=== PATIENT | male | born 1970 | race Two or more races ===

== ENCOUNTER 2017-03-14 20:19 | Emergency (ER) | payer OTHER ==
[~2017-03-14] VITALS: Ht 170.2 cm; Wt 90.7 kg
[2017-03-14] MEDS ORDERED: METOPROLOL SUCC50 MG ORAL (20:37)
[2017-03-14 20:40] VITALS: BP 152/78
--- NOTE | 2017-03-14 20:58 | Emergency Room Report ---
History of Present Illness General Chief Complaint: General Complaint Source: Patient Present Illness HPI The patient presents with 2 days of a rash. It started on his arms. It's now spread to his legs or his been itching. This evening is noted swelling of his ankles addition to that. There's been no change in foods, travel, hiking, detergents. He is using a different shampoo for about a week. He's been taking Benadryl. Been helping slightly with the itching. His tetanus is not up -to-date. He denies any fevers, shortness of breath chest pain, nausea, vomiting, diarrhea. Having nocturia and frequency. He denies any dysuria. Denies diabetes. Denies any childhood condition such as eczema or psoriasis. His never had allergies before. Allergies: Coded Allergies: No Known Allergies (Unverified , 03/14/17) Patient History Past Medical History: see triage record, HTN Social History: Denies: smoking Social History Narrative with young man and sister Reviewed Nursing Documentation: PMH: Agreed, PSxH: Agreed Nursing Documentation-PMH Hx Hypertension: Yes Review of Systems All Other Systems: negative except mentioned in HPI Physical Exam Vital Signs Date Time Temp Pulse Resp B/P (MAP) Pulse Ox O2 Delivery O2 Flow Rate FiO2 03/14/17 20:32 98.8 101 18 151/94 98 Room Air Sp02 EP Interpretation: reviewed, normal General Appearance: well appearing, no apparent distress, GCS 15 Head: normocephalic Eyes: left eye other - terbid cornea, bilateral eye normal inspection, bilateral eye abnormal EOM - dyscongugate gaze ENT: normal pharynx, moist mucus membranes Neck: supple Respiratory: lungs clear, normal breath sounds Cardiovascular #1: regular rate, rhythm, edema - trace - ankles Cardiovascular #2: 2+ radial (R) Gastrointestinal: normal inspection, normal bowel sounds, non tender, no mass, non-distended Musculoskeletal: back normal, gait/station normal, normal range of motion Neurologic: alert, oriented x3, grossly normal Psychiatric: mood/affect normal Skin: warm/dry, other - excoriations and some erythematous plaques LE, abrasions Medical Decision Making Diagnostic Impression: Primary Impression: Allergic reaction Qualified Codes: T78.40XA - Allergy, unspecified, initial encounter Additional Impressions: Leukocytosis, unspecified Eosinophilia Edema Qualified Codes: R60.9 - Edema, unspecified ER Course Patient presents with excoriated skin rash. There is mild erythema and some edema. Differential includes allergic reaction, cellulitis, diabetic dermatopathy, nephrotic syndrome amongst others. We will evaluate with labs. The patient recently took a Benadryl. He will receive a tetanus shot and we will consider using steroids. Sl elevated WBC with eosinophilia. Normal renal function. Solu medrol given. Improved with treatment with decreased itching and edema. Exact etiology of rash unclear. Will cover for both allergic reaction and early cellulitis. Patient stable for outpatient observation and treatment. Laboratory Tests Test 03/14/17 20:55 03/14/17 21:05 Urine Color Yellow Urine Appearance Clear Urine pH 5 (4.5-8.0) Urine Specific [place] 1.020 (1.005-1.035) Urine Protein Negative (NEGATIVE) Urine Glucose (UA) Negative (NEGATIVE) Urine Ketones Negative (NEGATIVE) Urine Occult Blood Negative (NEGATIVE) Urine Nitrite Negative (NEGATIVE) Urine Bilirubin Negative (NEGATIVE) Urine Urobilinogen Normal MG/DL (0.0-1.0) Urine Leukocyte Esterase 1+ (NEGATIVE) H Urine RBC 0-2 /HPF (0 - 0) H Urine WBC 0-2 /HPF (0 - 0) Urine Squamous Epithelial Cells Few /LPF (NONE/OCC) Urine Bacteria Few /HPF (NONE) White Blood Count 12.3 K/UL (4.8-10.8) H Red Blood Count 4.39 M/UL (4.70-6.10) L Hemoglobin 13.0 G/DL (14.2-18.0) L Hematocrit 42.0 % (42.0-52.0) Mean Corpuscular Volume 96 FL (80-99) Mean Corpuscular Hemoglobin 29.5 PG (27.0-31.0) Mean Corpuscular Hemoglobin Concent 30.9 G/DL (32.0-36.0) L Red Cell Distribution Width 12.2 % (11.6-14.8) Platelet Count 342 K/UL (150-450) Mean Platelet Volume 6.6 FL (6.5-10.1) Neutrophils (%) (Auto) 44.2 % (45.0-75.0) L Lymphocytes (%) (Auto) 36.4 % (20.0-45.0) Monocytes (%) (Auto) 7.0 % (1.0-10.0) Eosinophils (%) (Auto) 11.1 % (0.0-3.0) H Basophils (%) (Auto) 1.4 % (0.0-2.0) Erythrocyte Sedimentation Rate 35 MM/HR (0-15) H Prothrombin Time 10.1 SEC (9.30-11.50) Prothrombin Time INR 1.0 (0.9-1.1) PTT 27 SEC (23-33) Sodium Level 140 MMOL/L (136-145) Potassium Level 3.6 MMOL/L (3.5-5.1) Chloride Level 102 MMOL/L (98-107) Carbon Dioxide Level 28 MMOL/L (21-32) Anion Gap 10 mmol/L (5-15) Blood Urea Nitrogen 15 mg/dL (7-18) Creatinine 1.2 MG/DL (0.55-1.30) Estimate Glomerular Filtration Rate > 60 mL/min (>60) Glucose Level 108 MG/DL (74-106) H Calcium Level 9.2 MG/DL (8.5-10.1) Total Bilirubin 0.2 MG/DL (0.2-1.0) Aspartate Amino Transferase (AST) 26 U/L (15-37) Alanine Aminotransferase (ALT) 28 U/L (12-78) Alkaline Phosphatase 102 U/L (46-116) Total Creatine Kinase 160 U/L (26-308) Pro-B-Type Natriuretic Peptide 74 pg/mL (0-125) Total Protein 8.2 G/DL (6.4-8.2) Albumin 4.1 G/DL (3.4-5.0) Globulin 4.1 g/dL Albumin/Globulin Ratio 1.0 (1.0-2.7) Last Vital Signs Date Time Temp Pulse Resp B/P (MAP) Pulse Ox O2 Delivery O2 Flow Rate FiO2 03/14/17 23:10 98.4 82 16 150/80 100 Room Air Status: improved Disposition: HOME, SELF-CARE Condition: Improved Scripts Prednisone* (PREDNISONE*) 20 Mg Tablet 40 MG ORAL DAILY for 5 Days, #10 TAB Prov: Shine Holden M.D. 03/14/17 Bacitracin (Bacitracin) 28.4 Gm Oint...g. 1 APPLIC TOPIC BID, #30 GM Prov: Shine Holden M.D. 03/14/17 Triamcinolone Acet (Triamcinolone Acetonide) 15 Gm Cream..g. 1 APPLIC APPLIC BID Y for rash or itching, #15 GM 1 Refill Prov: Shine Holden M.D. 03/14/17 Shine Holden M.D. Mar 14, 2017 20:58
[2017-03-14] MEDS ORDERED: Tetanus/Diptheria/Pertussis Vaccine 0.5ml Syr IM ONE (21:00)
[2017-03-14 21:28] LABS: BASOPHILS % (AUTO) 1.4 % (0.0-2.0); EOSINOPHILS % (AUTO) 11.1 % (0.0-3.0); LYMPHOCYTES % (AUTO) 36.4 % (20.0-45.0); MEAN CORPUSCULAR HEMOGLOBIN 29.5 PG (27.0-31.0); MEAN CORPUSCULAR HGB CONC 30.9 G/DL (32.0-36.0); MEAN CORPUSCULAR VOLUME 96 FL (80-99); MEAN PLATELET VOLUME 6.6 FL (6.5-10.1); NEUTROPHILS % (AUTO) 44.2 % (45.0-75.0); PLATELET COUNT 342 K/UL (150-450); RED BLOOD COUNT 4.39 M/UL (4.70-6.10); RED CELL DISTRIBUTION WIDTH 12.2 % (11.6-14.8); WHITE BLOOD COUNT 12.3 K/UL (4.8-10.8)
[2017-03-14 21:31] LABS: APPEARANCE,URINE CLEAR; KETONES,URINE NEGATIVE (NEGATIVE); LEUKOCYTE ESTERASE ,URINE 1+ (NEGATIVE); NITRITE,URINE NEGATIVE (NEGATIVE); PH,URINE 5 (4.5-8.0); PROTEIN,URINE NEGATIVE (NEGATIVE); UROBILINOGEN,URINE NORMAL MG/DL (0.0-1.0)
[2017-03-14 21:38] LABS: PROTHROMBIN TIME 10.1 SEC (9.30-11.50)
[2017-03-14 21:44] LABS: BACTERIA,URINE FEW /HPF; RBC,URINE 0-2 /HPF (0 - 0); SQUAMOUS EPITHELIAL CELL,UR FEW /LPF (NONE/OCC); WBC,URINE 0-2 /HPF (0 - 0)
[2017-03-14 22:00] LABS: ALANINE AMINOTRANSFERASE 28 U/L (12-78); ANION GAP 10 mmol/L (5-15); ASPARTATE AMINO TRANSFERASE 26 U/L (15-37); CALCIUM 9.2 MG/DL (8.5-10.1); CARBON DIOXIDE 28 MMOL/L (21-32); CHLORIDE 102 MMOL/L (98-107); CREATININE 1.2 MG/DL (0.55-1.30); GLOMERULAR FILTRATION RATE > 60 mL/min (>60); POTASSIUM 3.6 MMOL/L (3.5-5.1); SODIUM 140 MMOL/L (136-145); TOTAL PROTEIN 8.2 G/DL (6.4-8.2)
[2017-03-14 22:05] VITALS: BP 148/76
[2017-03-14] MEDS ORDERED: Solu-MEDROL 125mg Inj IVP ONE (22:15)
[2017-03-14 22:43] LABS: ERYTHROCYTE SEDIMENTATION RATE 35 MM/HR (0-15)
[2017-03-14] MEDS ORDERED: BACITRACIN15 GM TOPIC (23:02)
[2017-03-14] MEDS ORDERED: PREDNISONE20 MG ORAL (23:02)
[2017-03-14] MEDS ORDERED: KENALOG 0.025%15 GM APPLIC (23:02)
[2017-03-14 23:09] VITALS: BP 150/80
[2017-03-14 23:10] VITALS: BP 150/80
== END 2017-03-14 23:10 | disposition home or self-care (01) ==
LOC: EMR 21:17
DX: T78.40XA Allergy, unspecified, initial encounter (principal); X58.XXXA Exposure to other specified factors, initial encounter; D72.829 Elevated white blood cell count, unspecified; D72.1 Eosinophilia; R60.0 Localized edema; Z23 Encounter for immunization; I10 Essential (primary) hypertension
CPT/HCPCS: 36415; 80053; 81003; 82550; 83880; 85025; 85610; 85651; 85730; 90471; 90715; 96374; 99284; J2930

== ENCOUNTER 2017-04-30 19:26 | Emergency (ER) | payer OTHER ==
[~2017-04-30] VITALS: Ht 170.2 cm; Wt 88.9 kg
[~2017-04-30 19:26] MED LIST: BACITRACIN15 GM TOPIC; KENALOG 0.025%15 GM APPLIC; METOPROLOL SUCC50 MG ORAL; PREDNISONE20 MG ORAL
[2017-04-30 19:45] VITALS: BP 152/99
--- NOTE | 2017-04-30 19:54 | Emergency Room Report ---
History of Present Illness General Chief Complaint: General Complaint Present Illness HPI 47-year-old male presents to the emergency department complaining of localized swelling to the posterior elbow since last night. Patient denies appreciable trauma or fall. Patient denies pain at this time he reports that he has full range of motion of the elbow. Patient denies erythema, increased temperature palpation, open wounds, or previous injury to the affected extremity. Denies fevers or chills. Denies history of gout, or previous episodes of joint pain and swelling. Denies numbness tingling or loss of sensation or gross motor movements of the extremities, incontinence of bowel or bladder. Denies CP, Palpitations, LOC, AMS, dizziness, Changes in Vision, Sensation, paresthesias, or a sudden severe headache. Allergies: Coded Allergies: No Known Allergies (Unverified , 03/14/17) Patient History Past Medical History: see triage record Past Surgical History: none Pertinent Family History: none Reviewed Nursing Documentation: PMH: Agreed, PSxH: Agreed Nursing Documentation-PMH Hx Hypertension: Yes Review of Systems All Other Systems: negative except mentioned in HPI Physical Exam Vital Signs Date Time Temp Pulse Resp B/P (MAP) Pulse Ox O2 Delivery O2 Flow Rate FiO2 04/30/17 19:31 97.5 84 16 152/99 99 Room Air Sp02 EP Interpretation: reviewed, normal General Appearance: no apparent distress, alert, GCS 15, non-toxic Head: normocephalic, atraumatic ENT: hearing grossly normal, normal voice Neck: full range of motion Respiratory: lungs clear, normal breath sounds, speaking full sentences Cardiovascular #1: regular rate, rhythm, normal capillary refill Cardiovascular #2: 2+ radial (L) Musculoskeletal: back normal, gait/station normal, normal range of motion, non- tender, swelling - localized well circumscribed palpable swelling to the posterior left elbow, no erythema, no increased temperature to palpation. FROM without pain, no open wounds. Neurologic: alert, oriented x3, responsive, motor strength/tone normal, sensory intact, normal gait, speech normal Skin: normal color, no rash, warm/dry, well hydrated Medical Decision Making PA Attestation Dr. Holden is my supervising Physician whom patient management has been discussed with. Diagnostic Impression: Primary Impression: Olecranon bursitis of left elbow ER Course 47-year-old male presents to the emergency department complaining of localized swelling to the posterior elbow since last night. Patient denies appreciable trauma or fall. Patient denies pain at this time he reports that he has full range of motion of the elbow. Patient denies erythema, increased temperature palpation, open wounds, or previous injury to the affected extremity. Denies fevers or chills. Denies history of gout, or previous episodes of joint pain and swelling. Denies numbness tingling or loss of sensation or gross motor movements of the extremities, incontinence of bowel or bladder. Denies CP, Palpitations, LOC, AMS, dizziness, Changes in Vision, Sensation, paresthesias, or a sudden severe headache. Ddx considered but are not limited to Fracture, dislocation, contusion, Sprain/ Strain/Spasm,olecranon bursitis, septic joint, sprain just to name a few. Vital signs: are WNL, pt. is afebrile H&PE are most consistent with musculoskeletal injury will perform imaging to r/ o fractures/dislocations. ORDERS: - none required at this time, as the diagnosis is clinical ED INTERVENTIONS: - Motrin PO -Moe wrap applied to the left elbow by fuel testing technician. Pt. remains neurovascularly intact. d/w pt. conservative treatment, and to follow up with a primary care provider. pt given a list of primary care clinics for follow up. d/w pt. to return to the ED with worsening or new symptoms. I discussed with this patient that if his symptoms do not get better that he may require needle aspiration and this will be determined up followup with his PMD. DISCHARGE: At this time pt. is stable for d/c to home. Will provide printed patient care instructions, and any necessary prescriptions. Care plan and follow up instructions have been discussed with the patient prior to discharge. Last Vital Signs Date Time Temp Pulse Resp B/P (MAP) Pulse Ox O2 Delivery O2 Flow Rate FiO2 04/30/17 19:31 97.5 84 16 152/99 99 Room Air Disposition: HOME, SELF-CARE Condition: Stable Scripts Naproxen Sodium (NAPROXEN SODIUM) 550 Mg Tablet 550 MG ORAL TWICE A DAY, #20 TAB Prov: Rosie Fisher 04/30/17 Patient Instructions: Olecranon Bursitis With Rehab[facility] Additional Instructions: Take medications as directed. Follow up with a Primary Care Provider in 3-5 days. If conservative treatment does not resolve your symptoms, Needle aspiration to drain would be considered. --Please review list of primary care clinics, if you do not already have a primary care provider Return sooner to ED if new symptoms occur, or current symptoms become worse. - Please note that this Emergency Department Report was dictated using [employer] servicer technology software, occasionally this can lead to erroneous entry secondary to interpretation by the dictation equipment. Rosie Fisher Apr 30, 2017 19:54
[2017-04-30] MEDS ORDERED: NAPROXEN SODIU550 M1 ORAL (19:55)
[2017-04-30 20:12] VITALS: BP 152/99
== END 2017-04-30 20:12 | disposition home or self-care (01) ==
LOC: EMR 19:56
DX: M70.22 Olecranon bursitis, left elbow (principal); I10 Essential (primary) hypertension
CPT/HCPCS: 99283

== ENCOUNTER 2017-06-29 17:09 | Emergency (ER) | payer OTHER ==
[~2017-06-29] VITALS: Ht 170.2 cm; Wt 88.9 kg
[~2017-06-29 17:09] MED LIST changes: +NAPROXEN SODIU550 M1 ORAL
[2017-06-29] MEDS ORDERED: HYDROCHLOROTHIA25 MG ORAL (17:35)
--- NOTE | 2017-06-29 17:55 | Emergency Room Report ---
History of Present Illness General Chief Complaint: General Complaint Source: Patient Present Illness HPI 47 yo male presents to ER complaining of left cheek stiffness x2days. Patient reports symptoms began acutely. Denies bug or animal bites. Reports up to date on vaccinations. Denies loss of function of extremities. Patient and patients reports lots of stress and want to know "if that is related." Denies vision changes, loss of hearing, ear pain, dental pain. Patient denies chest pain, SOB, LOC, syncope, muscle weakness. Denies difficulty eating or chewing food; denies difficulty swallowing liquids. Denies difficulty with speech. Allergies: Coded Allergies: AMLODIPINE (Verified Allergy, Unknown, 06/29/17) Patient History Past Medical History: see triage record Pertinent Family History: none Immunizations: UTD Reviewed Nursing Documentation: PMH: Agreed, PSxH: Agreed Nursing Documentation-PMH Hx Hypertension: Yes Review of Systems All Other Systems: negative except mentioned in HPI Physical Exam Vital Signs Date Time Temp Pulse Resp B/P (MAP) Pulse Ox O2 Delivery O2 Flow Rate FiO2 06/29/17 17:31 98.1 88 19 152/101 98 Room Air Sp02 EP Interpretation: reviewed, normal Head: normocephalic, atraumatic Eyes: bilateral eye normal inspection, bilateral eye PERRL, bilateral eye EOMI ENT: hearing grossly normal, normal pharynx, no angioedema, normal voice, TMs + canals normal, uvula midline, other - masseter muscle: contracted at rest, able to smile, frown, open mouth and speak without difficulty, no TTP, erythema , no edema, no loss of sensation Neck: full range of motion, supple/symm/no masses Respiratory: chest non-tender, lungs clear, normal breath sounds, speaking full sentences Cardiovascular #1: regular rate, rhythm, no edema Cardiovascular #2: 2+ carotid (R), 2+ carotid (L), 2+ radial (R), 2+ radial (L) Gastrointestinal: normal bowel sounds, non tender, soft, non-distended, no guarding, no rebound Musculoskeletal: back normal, digits/nails normal, gait/station normal, normal range of motion, non-tender Neurologic: alert, oriented x3, responsive, recycling tech III-XII nml as tested, motor strength/tone normal, sensory intact, speech normal Psychiatric: mood/affect normal Skin: normal color, no rash, warm/dry, well hydrated Lymphatic: no adenopathy Medical Decision Making PA Attestation Dr. Esqueda is my supervising Physician whom patient management has been discussed with. Diagnostic Impression: Primary Impression: Muscle spasm ER Course Pt. presents to the ED c/o left cheek spasm. Ddx considered but are not limited to muscle spasm, cramp, psychosomatic. Vital signs: are WNL, pt. is afebrile ORDERS: None required at this time ED INTERVENTIONS: None required at this time DISCHARGE: -Rx provided for Methocarbamol At this time pt. is stable for d/c to home. Patient resting comfortably in no acute distress, hemodynamically stable, non- toxic appearing, Will provide printed patient care instructions, and any necessary prescriptions. Patient instructed to follow with primary care provider in 3 - 5 days and to request further as needed. Patient understands and agrees to treatment plan. Care plan and follow up instructions have been discussed with the patient prior to discharge. Take medications as directed. Patient questions asked and answered. ER precautions given, patient instructed to return to ER immediately for any new or worsening of symptoms. Last Vital Signs Date Time Temp Pulse Resp B/P (MAP) Pulse Ox O2 Delivery O2 Flow Rate FiO2 06/29/17 17:31 98.1 88 19 152/101 98 Room Air Disposition: HOME, SELF-CARE Condition: Stable Scripts Methocarbamol* (METHOCARBAMOL*) 500 Mg Tablet 500 MG ORAL TID Y for For Pain, #15 TAB 0 Refills Prov: Raciel Abraham 06/29/17 Patient Instructions: Muscle Cramps and Spasms, [id number] Additional Instructions: Followup with primary care provider in 2-3 days. Take medications as directed. Patient questions asked and answered. ER precautions given, patient instructed to return to ER immediately for any new or worsening of symptoms. Raciel Abraham Jun 29, 2017 17:55
[2017-06-29] MEDS ORDERED: METHOCARBAMOL500 MG ORAL (18:11)
[2017-06-29 18:41] VITALS: BP 143/92
== END 2017-06-29 18:41 | disposition home or self-care (01) ==
LOC: EMR 18:05
DX: M62.838 Other muscle spasm (principal); Z88.8 Allergy status to other drugs, medicaments and biological substances; I10 Essential (primary) hypertension
CPT/HCPCS: 99283